=== PATIENT | male | born 1985 | race Caucasian/White ===

== ENCOUNTER → 2016-04-24 | Outpatient (CLI) | payer OTHER ==
--- NOTE | 2016-04-24 09:20 | DX ---
Right Clavicle, Two Views History: Right clavicular fracture post ORIF. Comparison: February 2016. Findings: Fixation plate with 6 vertical screws and 2 horizontal screws fixating mid diaphyseal clavi cular fracture demonstrating satisfactory alignment. Impression: Status post right clavicular fracture ORIF in satisfactory alignment.
== END ==
LOC: BMCIMAGING 08:34
PROVIDERS: ATTEND Physician Assistant
DX: S42.021A Displaced fracture of shaft of right clavicle, initial encounter for closed fracture (principal)

== ENCOUNTER → 2016-05-30 | Outpatient (CLI) | payer OTHER | LOC: BMCIMAGING 08:43 | PROVIDERS: ATTEND Orthopaedic Surgery | DX: S42.024D Nondisplaced fracture of shaft of right clavicle, subsequent encounter for fracture with routine healing (principal); Z98.1 Arthrodesis status ==